=== PATIENT | male | born 2000 | race Caucasian/White ===

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

== ENCOUNTER 2024-04-02 17:26 | Emergency (ER) | payer BC ==
[~2024-04-02] VITALS: Ht 175.2 cm; Wt 81.6 kg
== END 2024-04-02 20:17 | disposition home or self-care (01) ==
LOC: ED 17:26
DX: S93.401A Sprain of unspecified ligament of right ankle, initial encounter (principal); M79.661 Pain in right lower leg; Z88.1 Allergy status to other antibiotic agents; Z96.22 Myringotomy tube(s) status; W20.8XXA Other cause of strike by thrown, projected or falling object, initial encounter; Y93.89 Activity, other specified; Y92.89 Other specified places as the place of occurrence of the external cause; Y99.8 Other external cause status

== ENCOUNTER → 2025-06-06 | Outpatient (CLI) | payer BC ==
[2025-06-06 08:24] LABS: BASO # 0.0 10*3/uL (0.0-0.1); BASO % 0.6 % (0.0-1.0); EOS # 0.1 10*3/uL (0.0-0.4); EOS % 2.6 % (1.0-4.0); MEAN CELL VOLUME 83.3 fl (80.0-94.0); MEAN CORPUSCULAR HGB 28.6 pg (27.0-31.0); MEAN PLATELET VOLUME 9.6 fl (9.6-12.3); MONO # 0.6 10*3/uL (0.1-1.0); MONO % 10.2 % (3.0-9.0); NEUT # 2.8 10*3/uL (2.3-7.9); NEUT % 51.3 % (47.0-73.0); NUCLEATED RED BLOOD CELL 0.0 % (0.0-0.0); NUCLEATED RED BLOOD CELL 0.0 10*3/uL (0.0-0.0); PLATELET COUNT AUTOMATED 372 10*3/uL (130-400); RED CELL DISTRI WIDTH 12.1 % (0-14.5)
[2025-06-06 09:03] LABS: BUN 18 mg/dl (9-23); SGPT/ALT 26 U/L (5-49)
== END | disposition home or self-care (01) ==
LOC: CARD 03:40
PROVIDERS: ATTEND Internal Medicine
DX: R00.1 Bradycardia, unspecified (principal); R00.2 Palpitations; R00.0 Tachycardia, unspecified